=== PATIENT | male | born 2000 | race African-American/Black ===

== ENCOUNTER 2023-01-01 23:00 | Emergency (ER) | payer MEDICAID ==
[~2023-01-01] VITALS: Ht 185.4 cm; Wt 88.3 kg
[2023-01-01 23:12] VITALS: PULSE 95
[2023-01-01 23:47] VITALS: BP 128/88; RESP 16; TEMP 98.3
== END 2023-01-02 02:00 | disposition left against medical advice (07) ==
LOC: ER 23:00
DX: Z53.21 Procedure and treatment not carried out due to patient leaving prior to being seen by health care provider (principal)
CPT/HCPCS: 99281